=== PATIENT | male | born 1955 | race Caucasian/White ===

== ENCOUNTER 2025-04-18 09:52 | Emergency (ER) | payer BC, SELFPAY ==
[2025-04-18 09:55] VITALS: BP 158/100
--- NOTE | 2025-04-18 10:55 | ED.GENMED ---
History of Present Illness
General
Chief Complaint: Back Pain
Source: patient
Exam Limitations: none
Time Seen by Provider: 04/18/25 10:40
History of Present Illness
History of Present Illness:
69yoM with no significant past medical history presenting for evaluation of back pain. Patient reports a sharp pain in his left scapular region for the past week. He denies any trauma but was exercising and stretching prior to his symptoms
beginning. Pain is worse with movement and standing. He was seen at [facility] ED 2 days ago for the symptoms and had a workup including labs, EKG, chest x-ray, and CTA dissection study which were unrevealing. He was given prescriptions for
Robaxin 1000mg TID and naproxen. He has taken this as well as Tylenol, aspirin, and heating pad without any relief. Pain has been gradually worsening. He was seen at urgent care prior to arrival and was sent to the ED for evaluation. He denies
any shortness of breath, fevers, difficulty urinating, incontinence, numbness, weakness. No prior history of IV drug use.
Phy Exam
Physical Exam
Physical Exam:
Appears uncomfortable, non-toxic
General Physical Exam
General Presentation: well appearing
General Skin: warm and dry
General Habitus: normal
General Mental: alert
ENT Exam
ENT Exam: normocephalic
Cardiovascular Exam
Cardiovascular Exam: regular rate/rhythm, no edema, no murmur and normal peripheral pulses (2+ radial and DP pulses bilaterally)
Pulmonary Exam
Pulmonary Exam: lungs clear, no respiratory distress, no rales, no crackles, no rhonchi and no wheezing
Neurological Exam
Neurological Exam: alert, no motor deficits and speech normal
[place] Coma Scale
Eye Opening: Spontaneous
Verbal Response: Oriented
Motor Response: Obeys Commands
GCS Total Score: 15
Musculoskeletal Exam
Musculoskeletal Exam: other (+Tenderness in L paraspinal musculature in thoracic region. No midline spinous process tenderness. No skin changes.)
Skin Exam
Skin Exam: normal color and warm/dry
Psychiatric Exam
Psychiatric Exam: normal mood/affect
Course
Orders/Labs/Results
Orders:
Orders
04/18/25 10:54
HYDROmorphone [Dilaudid] 0.5 mg IV NOW STA
Ketorolac [Toradol] 15 mg IV NOW STA
Lidocaine [Lidocaine 4% Patch] 1 patch TOPICAL ONCE ONE
Apply Lidocaine patch(s) to:: L upper back
04/18/25 11:20
Dexamethasone Sod Phosphate [Decadron] 10 mg IV NOW STA
Vital Signs
Initial and Last Documented VS:
Initial Vital Signs
Temp Pulse Resp BP Pulse Ox
98.1 F 80 20 158/100 99
04/18/25 09:55 04/18/25 09:55 04/18/25 09:55 04/18/25 09:55 04/18/25 09:55
Last Documented Vital Signs
Temp Pulse Resp BP Pulse Ox
98.1 F 80 20 158/100 99
04/18/25 09:55 04/18/25 09:55 04/18/25 09:55 04/18/25 09:55 04/18/25 10:57
MDM/Problems Addressed
Differential Diagnosis Includes:
69yoM here with L upper back pain x 1 week. No specific trauma. Has been seen an outside ED 2 days ago and had a full workup including CTA dissection study which was unrevealing. Sent in by urgent care. No red flags in history including no fevers,
saddle anesthesia, incontinence, hx of IV drug use. He appears uncomfortable on exam. There is reproducible muscular tenderness in the L thoracic region. Differential diagnosis includes: muscle spasm/strain, herniated disc, doubt fracture given
normal imaging 2 days ago
No indication for repeat imaging at this time. He was given IV Dilaudid, Toradol, Decadron, and a lidocaine patch with significant improvement in his pain. He states this is the least amount of pain he has been in all week. Patient stable for
discharge. Suspect muscular pain. Prescription provided for Valium and he was advised to stop Robaxin. He has an appt scheduled with orthopedics in 3 days. ED return precautions reviewed and he was discharged in stable condition.
*Pulse Oximetry
SaO2: 99
Oxygen Mode of Delivery: Room air
Patient hypoxic: no
*Critical Care Note
Total Time (30-74mins, 75-104mins- exclusive of procedures): Not Applicable
ED Attending Note
-
Portions of this chart may have been created with voice recognition software.� Occasional wrong word or��sound alike� substitutions may have occurred due to the inherent limitations of voice recognition software.
Discharge Plan
Departure
Patient Disposition: Home (Routine Discharge)
Date of Disposition: 04/18/25
Time of Disposition: 12:27
Patient with high blood pressure during this ER visit?: Yes
Discharge Problem:
Upper back pain on left side
Instructions: Upper Back Pain (DC)
Prescriptions:
New
diazepam [Valium] 5 mg tablet
5 mg PO Q8H PRN (Reason: muscle spasm) Qty: 12 0RF
Referrals:
Hieu Ohara PA-C [Family Provider, Family Practice]
Activity Restrictions/Additional Instructions:
Continue taking naproxen. You may take Tylenol 650 mg every 6 hours as needed. Use lidocaine patches daily (12 hours on, 12 hours off). Take Valium only as needed for severe pain/spasms.
Please follow-up with orthopedics on Sunday as previously scheduled. Return to the ER with any new or worsening symptoms including fever, weakness of your extremities, or incontinence.
Interventions
Interventions:
*Risk Screen - Suicide Last Done: 04/18/25 09:55
*General Assessment Last Done: 04/18/25 09:55
*Neglect/Abuse Screening Last Done: 04/18/25 09:55
*Nursing Disposition Last Done: 04/18/25 13:49
ED-Musculoskeletal Assessment Last Done: 04/18/25 10:04
Discharge Date and Time
Discharge Date/Time: 04/18/25 13:50
Print Language: ITALIAN
[2025-04-18] MEDS: TORADOL 15 MG IV (11:32)
[2025-04-18] MEDS: DILAUDID 0.5 MG IV (11:32)
[2025-04-18] MEDS: DECADRON 10 MG IV (11:32)
[2025-04-18] MEDS: LIDOCAINE 4% PATCH 1 PATCH TOPICAL (11:39)
== END 2025-04-18 13:50 | disposition home or self-care (01) ==
LOC: EMR 09:52
PROVIDERS: EMERGENCY PHYSICIAN Emergency Medicine; FAMILY PHYSICIAN Physician Assistant Medical
DX: M54.6 Pain in thoracic spine (principal); R03.0 Elevated blood-pressure reading, without diagnosis of hypertension
CPT/HCPCS: 99284; 96374; 96375 ×2